=== PATIENT | male | born 1985 | race Two or more races ===

== ENCOUNTER 2017-04-04 18:07 | Emergency (ER) | payer MEDICAID, OTHER ==
[~2017-04-04] VITALS: Ht 177.8 cm; Wt 81.6 kg
[2017-04-04 18:20] VITALS: BP 176/80
[2017-04-04] MEDS ORDERED: FLUCONAZOLE 100 MG TAB PO ONE (21:45)
[2017-04-04 21:54] LABS: Urine Bilirubin Negative (Negative); Urine Blood Negative /uL (Negative); Urine Color Yellow (Yellow); Urine Glucose Normal (Normal); Urine Ketone Negative (Negative); Urine Nitrite Negative (Negative); Urine RBC <1 /hpf (0 - 3); Urine Urobilinogen Normal (Negative); Urine pH 5.5 (5.0-8.0)
== END 2017-04-04 22:16 | disposition home or self-care (01) ==
LOC: ER 18:09
DX: B37.2 Candidiasis of skin and nail (principal); L73.9 Follicular disorder, unspecified
CPT/HCPCS: 81001

== ENCOUNTER 2017-12-07 19:41 | Emergency (ER) | payer MEDICAID ==
[~2017-12-07] VITALS: Ht 177.8 cm; Wt 83.9 kg
[2017-12-07 20:38] LABS: Basophils # (auto) 0 uL; Basophils % (auto) 0.4 % (0.0-2.0); Eosinophils # (auto) 0.6 uL; Eosinophils % (auto) 7.2 % (0.0-7.0); Hematocrit 46.7 % (41.0-53.0); Hemoglobin 15.6 g/dL (13.5-17.5); Lymphocytes # (auto) 1.6 uL; Lymphocytes % (auto) 20.4 % (10.0-50.0); Mean Corpuscular Hgb Conc. 33.4 g/dL (32.0-36.0); Mean Corpuscular Volume 86.9 fL (80.0-100.0); Monocytes # (auto) 0.4 uL; Monocytes % (auto) 5.2 % (0.0-12.0); Neutrophils # (auto) 5.2 uL; Neutrophils % (auto) 66.8 % (37.0-80.0); Nucleated Red Blood Cells % 0.1 %; Platelet Count (auto) 207 10^3/uL (140-450); Red Blood Cells 5.38 10^6/uL (4.5-5.90); Red Cell Distribution Width 13.1 % (11.8-14.3); White Blood Cell 7.8 10^3/uL (4.4-10.8)
[2017-12-07 20:43] LABS: Urine Bacteria NONE SEEN /hpf (None Seen); Urine Blood Negative /uL (Negative); Urine Mucus FEW (None Seen); Urine Specific Gravity 1.027 (1.001-1.035); Urine WBC 1 /hpf (0 - 3)
[2017-12-07 20:53] LABS: INR 1.04 (0.9-1.15); Partial Thromboplastin Time 27.3 sec (22.64-33.71); Prothrombin Time 11.3 sec (9.37-12.3)
[2017-12-07 20:54] LABS: Albumin 4.4 g/dL (3.4-5.0); BUN/Creatinine Ratio 20.8; Calcium 9.3 mg/dL (8.5-10.1); Potassium 4.3 mmol/L (3.5-5.1)
[2017-12-07 20:58] LABS: Bilirubin, Total 0.4 mg/dL (0.2-1.0); Total Protein 7.8 g/dL (6.4-8.2)
[2017-12-08 03:00] VITALS: BP 122/84
== END 2017-12-08 04:00 | disposition home or self-care (01) ==
LOC: ER 19:41
DX: M54.5 Low back pain (principal); N39.0 Urinary tract infection, site not specified
CPT/HCPCS: 36415; 74176; 80053; 81001; 82150; 83690; 85025; 85610; 85730

== ENCOUNTER 2018-01-22 09:33 | Emergency (ER) | payer MEDICAID ==
[~2018-01-22] VITALS: Ht 177.8 cm; Wt 83.9 kg
[2018-01-22 09:51] VITALS: BP 132/74
== END 2018-01-22 12:08 | disposition home or self-care (01) ==
LOC: ER 09:33
DX: G89.29 Other chronic pain (principal); M54.5 Low back pain; M54.16 Radiculopathy, lumbar region